=== PATIENT | female | born 1955 | race Two or more races ===

== ENCOUNTER 2025-06-08 20:37 | Emergency (ER) | payer OTHER ==
[~2025-06-08] VITALS: Ht 154.9 cm; Wt 64.4 kg
[2025-06-08 20:59] VITALS: BP 150/80; O2SAT 100
[2025-06-08] MEDS ORDERED: SYNTHROID50 MCG PO (20:59)
== END 2025-06-08 22:21 | disposition home or self-care (01) ==
LOC: ER 20:37
DX: R07.9 Chest pain, unspecified (principal); E03.8 Other specified hypothyroidism; Z88.6 Allergy status to analgesic agent